=== PATIENT | male | born 1985 | race Asian ===

== ENCOUNTER 2020-02-23 18:52 | Emergency (ER) | payer OTHER ==
[~2020-02-23] VITALS: Ht 170.2 cm; Wt 104.3 kg
[2020-02-23 20:06] LABS: PLATELET COUNT 272 K/uL (142-355)
[2020-02-23 20:29] LABS: POTASSIUM 3.6 mmol/L (3.6-5.2)
[2020-02-23 21:35] VITALS: BP 125/86; TEMP 98.5
== END 2020-02-23 21:35 | disposition home or self-care (01) ==
LOC: ED 18:52
DX: R11.2 Nausea with vomiting, unspecified (principal); R19.7 Diarrhea, unspecified
CPT/HCPCS: 36415; 80053; 81000; 82150; 83690; 85027; 96374; 99284; J2405

== ENCOUNTER 2020-03-07 14:26 | Emergency (ER) | payer OTHER ==
[~2020-03-07] VITALS: Ht 170.2 cm; Wt 108.9 kg
[2020-03-07 14:35] VITALS: TEMP 98.1
[2020-03-07] MEDS ORDERED: METF500T PO (15:02)
[2020-03-07] MEDS ORDERED: HYDR25TA60 PO (15:03)
[2020-03-07 16:15] VITALS: BP 169/99
== END 2020-03-07 16:18 | disposition home or self-care (01) ==
LOC: ED 14:26
PROC: 0HQFXZZ Repair Right Hand Skin, External Approach (ICD-10-PCS; principal; 2020-03-07)
DX: S61.210A Laceration without foreign body of right index finger without damage to nail, initial encounter (principal); S61.212A Laceration without foreign body of right middle finger without damage to nail, initial encounter; S61.214A Laceration without foreign body of right ring finger without damage to nail, initial encounter; W26.8XXA Contact with other sharp object(s), not elsewhere classified, initial encounter; Y92.89 Other specified places as the place of occurrence of the external cause
CPT/HCPCS: 90471; 90715; 99283; J2001; J7040

== ENCOUNTER 2020-03-17 17:34 | Emergency (ER) | payer OTHER ==
[~2020-03-17] VITALS: Ht 170.2 cm; Wt 108.9 kg
[~2020-03-17 17:34] MED LIST: HYDR25TA60 PO; METF500T PO
[2020-03-17 18:48] VITALS: BP 147/91; TEMP 98
== END 2020-03-17 18:49 | disposition home or self-care (01) ==
LOC: ED 17:34
DX: Z48.02 Encounter for removal of sutures (principal)

== ENCOUNTER 2021-04-09 15:02 | Emergency (ER) | payer OTHER ==
[~2021-04-09] VITALS: Ht 170.2 cm; Wt 108.9 kg
[2021-04-09 17:05] VITALS: BP 182/100; TEMP 98.5
== END 2021-04-09 17:05 | disposition home or self-care (01) ==
LOC: ED 15:02
DX: J06.9 Acute upper respiratory infection, unspecified (principal); Z20.822 Contact with and (suspected) exposure to COVID-19; F17.210 Nicotine dependence, cigarettes, uncomplicated
CPT/HCPCS: 87502; 87635; 87651; 99283; U0003

== ENCOUNTER 2022-07-08 19:51 | Emergency (ER) | payer OTHER ==
[~2022-07-08] VITALS: Ht 170.2 cm; Wt 106.6 kg
[2022-07-08 19:56] VITALS: TEMP 98.3
[2022-07-08 21:08] LABS: PLATELET COUNT 281 K/uL (142-355)
[2022-07-08 21:09] LABS: POTASSIUM 3.8 mmol/L (3.6-5.2)
[2022-07-09 00:30] VITALS: BP 175/103
== END 2022-07-09 00:50 | disposition home or self-care (01) ==
LOC: ED 19:51
PROVIDERS: Emergency Medicine
DX: R51.9 Headache, unspecified (principal); I10 Essential (primary) hypertension; F10.20 Alcohol dependence, uncomplicated; F17.210 Nicotine dependence, cigarettes, uncomplicated
CPT/HCPCS: 36415; 80053; 84484; 85027; 93005; 96372; 99283; J1885